=== PATIENT | male | born 1995 | race Two or more races ===

== ENCOUNTER 2018-04-13 15:07 | Outpatient (CLI) | payer OTHER | END 2018-04-13 15:10 | disposition home or self-care (01) | LOC: RAD 15:07 | DX: M26.69 Other specified disorders of temporomandibular joint (principal) ==

== ENCOUNTER 2018-05-05 12:27 | Outpatient (CLI) | payer OTHER | END 2018-05-05 12:39 | disposition home or self-care (01) | LOC: LAB 12:27 | DX: J18.0 Bronchopneumonia, unspecified organism (principal); J06.9 Acute upper respiratory infection, unspecified; J11.1 Influenza due to unidentified influenza virus with other respiratory manifestations; Z00.00 Encounter for general adult medical examination without abnormal findings ==

== ENCOUNTER 2019-01-08 15:24 | Emergency (ER) | payer OTHER ==
[~2019-01-08] VITALS: Ht 182.9 cm; Wt 88.5 kg
== END 2019-01-08 21:23 | disposition home or self-care (01) ==
LOC: ER 15:24
DX: K29.60 Other gastritis without bleeding (principal); K29.80 Duodenitis without bleeding

== ENCOUNTER 2019-01-23 08:39 | Outpatient (CLI) | payer OTHER | END 2019-01-23 08:51 | disposition home or self-care (01) | LOC: LAB 08:39 | DX: R10.84 Generalized abdominal pain (principal); Z00.00 Encounter for general adult medical examination without abnormal findings; Z13.6 Encounter for screening for cardiovascular disorders; Z12.11 Encounter for screening for malignant neoplasm of colon ==

== ENCOUNTER 2019-08-02 17:25 | Outpatient (CLI) | payer OTHER | END 2019-08-02 18:00 | disposition home or self-care (01) | LOC: LAB 17:25 | DX: J11.1 Influenza due to unidentified influenza virus with other respiratory manifestations (principal) ==

== ENCOUNTER 2019-09-29 09:34 | Outpatient (CLI) | payer OTHER | END 2019-09-29 09:42 | disposition home or self-care (01) | LOC: LAB 09:34 | DX: J11.1 Influenza due to unidentified influenza virus with other respiratory manifestations (principal); R53.81 Other malaise; Z20.828 Contact with and (suspected) exposure to other viral communicable diseases; R51 Headache; R50.9 Fever, unspecified ==

== ENCOUNTER 2019-12-19 09:19 | Outpatient (CLI) | payer OTHER | END 2019-12-19 09:23 | disposition home or self-care (01) | LOC: LAB 09:19 | PROVIDERS: ATTEND General Practice | DX: Z20.828 Contact with and (suspected) exposure to other viral communicable diseases (principal); Z11.59 Encounter for screening for other viral diseases; B35.4 Tinea corporis ==

== ENCOUNTER 2020-09-25 10:48 | Outpatient (CLI) | payer OTHER | END 2020-09-25 10:56 | disposition home or self-care (01) | LOC: RAD 10:48 | PROVIDERS: ATTEND Physical Medicine & Rehabilitation | DX: S86.812A Strain of other muscle(s) and tendon(s) at lower leg level, left leg, initial encounter (principal); M17.12 Unilateral primary osteoarthritis, left knee ==

== ENCOUNTER 2020-11-04 08:00 | Outpatient (CLI) | payer OTHER | END 2020-11-04 08:30 | disposition home or self-care (01) | LOC: PPH VACUNA 08:00 | DX: Z23 Encounter for immunization (principal) ==

== ENCOUNTER → 2021-01-10 08:17 | Outpatient (CLI) | payer OTHER | END | disposition home or self-care (01) | LOC: RAD 08:17 | PROVIDERS: ATTEND Emergency Medicine Pediatric Emergency Medicine | DX: R07.89 Other chest pain (principal) ==

== ENCOUNTER 2021-01-10 08:45 | Outpatient (CLI) | payer OTHER | END 2021-01-10 08:47 | disposition home or self-care (01) | LOC: LAB 08:45 | PROVIDERS: ATTEND Internal Medicine | DX: E03.8 Other specified hypothyroidism (principal); I10 Essential (primary) hypertension; M54.5 Low back pain; Z01.810 Encounter for preprocedural cardiovascular examination; E78.89 Other lipoprotein metabolism disorders; E55.9 Vitamin D deficiency, unspecified; E11.51 Type 2 diabetes mellitus with diabetic peripheral angiopathy without gangrene; E66.8 Other obesity; D64.89 Other specified anemias; Z12.11 Encounter for screening for malignant neoplasm of colon ==

== ENCOUNTER 2021-10-14 11:58 | Outpatient (CLI) | payer OTHER | END 2021-10-14 12:03 | disposition home or self-care (01) | LOC: RAD 11:58 | PROVIDERS: ATTEND Chiropractor | DX: M99.01 Segmental and somatic dysfunction of cervical region (principal); M99.02 Segmental and somatic dysfunction of thoracic region; M99.03 Segmental and somatic dysfunction of lumbar region ==

== ENCOUNTER 2021-12-19 08:30 | Outpatient (CLI) | payer OTHER | END 2021-12-19 08:33 | disposition home or self-care (01) | LOC: LAB 08:30 | PROVIDERS: ATTEND Emergency Medicine Pediatric Emergency Medicine | DX: Z01.810 Encounter for preprocedural cardiovascular examination (principal); I10 Essential (primary) hypertension ==